=== PATIENT | male | born 1960 | race Caucasian/White ===

== ENCOUNTER → 2024-04-09 06:37 | Outpatient (REF) | payer OTHER, SELFPAY | LOC: MRI 3T 06:37 | PROVIDERS: ATTENDING PHYSICIAN Physician Assistant; FAMILY PHYSICIAN Family Medicine | DX: M54.16 Radiculopathy, lumbar region (principal) | CPT/HCPCS: 72148 ==

== ENCOUNTER 2024-04-14 06:18 | Day surgery (SDC) | payer OTHER, SELFPAY | END 2024-04-14 11:05 | disposition home or self-care (01) | LOC: GI 06:18 | PROVIDERS: ATTENDING PHYSICIAN Surgery | DX: K62.5 Hemorrhage of anus and rectum (principal); K57.30 Diverticulosis of large intestine without perforation or abscess without bleeding; K64.9 Unspecified hemorrhoids | CPT/HCPCS: 45378 ==